=== PATIENT | male | born 1990 | race African-American/Black ===

== ENCOUNTER 2016-07-16 23:30 | Emergency (ER) | payer OTHER ==
--- NOTE | 2016-07-17 00:09 | EDDOCDS ---
Nurse's Notes [facility] Name: Woodrow Vernon Age: 25 yrs Sex: Male : 1990 Arrival Date: 07/16/2016 Time: 23:30 Bed I5 / M5 Private MD: MOBerry DYER Diagnosis: Impacted cerumen, left ear Presentation: 07/16 23:43 Presenting complaint: Patient states: Having trouble hearing out of left ear. Symptoms jo3 started yesterday. Adult Sepsis Screening: The patient does not have new or worsening altered mentation. Patient's respiratory rate is less than 22. Systolic blood pressure is greater than 100. Patient has a qSOFA score of 0- Negative Sepsis Screen. Suicide/Homicide risk assessment- the patient denies having any suicidal and/or homicidal ideations and does not present with any other emotional, behavioral or mental health complaints. 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 Transition of care: patient was not received from another setting of care. 23:43 Acuity: RIVERA Level 4 jo3 23:43 Method Of Arrival: Walkin/Carried/Asstd jo3 Triage Assessment: 23:44 General: Appears in no apparent distress, comfortable, Behavior is appropriate for age, jo3 cooperative. Pain: Denies pain. HIV screening NA for this visit Offered previously. Neurological: Level of Consciousness is awake, alert, Oriented to person, place, time. Respiratory: Airway is patent Respiratory effort is even, unlabored. Historical: - Allergies: Tramadol HCl"had a seizure"; - Home Meds: 1. hydrochlorothiazide 25 mg Oral tab 1 tab once daily - PMHx: Hypertension; - PSHx: none; - Social history: Smoking status: Patient states was never smoker of tobacco. No barriers to communication noted, The patient speaks fluent Jamaican, Speaks appropriately for age. - Family history: Not pertinent. - : The pt / caregiver states he / she is not on anticoagulants. Home medication list is obtained from the patient. - Exposure Risk Screening:: None identified. Screenin/25 00:06 Screening information is obtained from the patient. Fall risk: No risks identified. mcp Assistance ADL's: requires no assistance with activities of daily living. Abuse/DV Screen: The patient / caregiver reports he/she is: not in a situation that causes fear, pain or injury. Nutritional screening: No deficits noted. Advance Directives: There is no active DNR order. home support is adequate. Assessment: 00:04 General: Appears uncomfortable, Behavior is cooperative. Pain: Location: left ear. mcp Neurological: No deficits noted. EENT: Reports pain in left ear. Respiratory: Airway is patent Respiratory effort is even, unlabored. Derm: Skin is pink, warm & dry. Vital Signs: 07/16 23:32 BP 174 / 97; Pulse 68; Resp 18; Temp 98.2; Pulse Ox 99% ; Weight 111.13 kg; Height 5 [facility] ft. 9 in. (175.26 cm); Pain 0/10; 23:32 Body Mass Index 36.18 (111.13 kg, 175.26 cm) [facility] Vitals: 23:32 Log In Time: July 16, 2016 at 23:32. [facility] ED Course: 23:32 Patient visited by Sherry Yu Unit Clerk. [facility] 23:32 [facility]. j[facility] 23:32 Patient moved to Waiting jlm 23:33 Patient moved to Pre RCE jlm 23:44 Patient visited by Louise Evans RN. jo3 23:44 Triage Initiated jo3 23:45 Patient moved to I5 / M5 jo3 23:47 Venkatesh Peña RPA-C is PHCP. ck7 23:47 Troy Gonsalez DO is Attending Physician. ck7 23:47 Patient visited by Venkatesh Peña RPA-C. ck7 23:59 [facility] is Referral Physician. ck7 07/17 00:00 Francisco Lou is Referral Physician. ck7 00:06 The patient / caregiver is instructed regarding the plan of care and ED course. Patient mcp has correct armband on for positive identification. Bed in low position. Call light in reach. 00:07 [place] was scanned into [employer] and attached to record. hs2 00:08 No IV's were initiated during this patient's visit. No procedures done that require mcp assistance. Order Results: There are currently no results for this order. Outcome: 00:00 Discharge ordered by Provider. ck7 00:08 Discharge Assessment: patient administered narcotics - no. The following High Risk mcp Discharge criteria are identified: None. Discharged to home ambulatory. Condition: stable. Discharge instructions given to patient, Instructed on discharge instructions, follow up and referral plans. medication usage, Demonstrated understanding of instructions, medications, Pt was receptive of discharge instructions/ teaching. Prescriptions given X 1. No special radiology studies were completed. Property sent home with patient. 00:08 Patient left the ED. [facility] Signatures: Krystal Colordao RN RN mcp Helmerci, Jennifer, RN RN Venkatesh Prajapati, RPA-C RPA-Cck7 Sherry Yu, Accordion Maker Unit Valerie Coronel, Reg Reg hs2 MTDD
--- NOTE | 2016-07-17 00:09 | EDDOCDS ---
Physician Documentation [facility] Name: Woodrow Vernon Age: 25 yrs Sex: Male : 1990 Arrival Date: 07/16/2016 Time: 23:30 Bed I5 / M5 Private MD: Berry KNIGHT Disposition: 07/17/16 00:00 Discharged to Home/Self Care. Impression: Impacted cerumen, left ear. - Condition is Stable. - Discharge Instructions: Cerumen Impaction. - Prescriptions for Debrox 6.5 % Otic Drops - instill 5 drop by OTIC route once daily As needed; 1 bottle. - Medication Reconciliation, Local Pharmacy Hours form. - [facility] up: [facility]; When: 2 - 3 days; Reason: Recheck today's complaints, Continuance of care. Follow up: Francisco Lou; When: 2 - 3 days; Reason: Recheck today's complaints, Continuance of care. - Problem is new. - Symptoms have improved. Historical: - Allergies: Tramadol HCl"had a seizure"; - Home Meds: 1. hydrochlorothiazide 25 mg Oral tab 1 tab once daily - PMHx: Hypertension; - PSHx: none; - Social history: Smoking status: Patient states was never smoker of tobacco. No barriers to communication noted, The patient speaks fluent Malaysian, Speaks appropriately for age. - Family history: Not pertinent. - : The pt / caregiver states he / she is not on anticoagulants. Home medication list is obtained from the patient. - Exposure Risk Screening:: None identified. Vital Signs: 07/16 23:32 BP 174 / 97; Pulse 68; Resp 18; Temp 98.2; Pulse Ox 99% ; Weight 111.13 kg / 245 lbs; jlm Height 5 ft. 9 in. (175.26 cm); Pain 0/10; 23:32 Body Mass Index 36.18 (111.13 kg, 175.26 cm) jl MDM: 07/17 00:06 Financial registration complete. hs2 00:07 [facility] Payment Agreement was scanned into [employer] and attached to record. hs2 Signatures: Krystal Colorado RN RN Louise Sandoval RN RN jo3 Venkatesh Peña, RPA-C RPA-Cck7 Valerie Montenegro, Reg Reg hs2 The chart was reviewed and I authenticate all verbal orders and agree with the evaluation and treatment provided.Attachments: 00:07 [facility] Payment Agreement hs2 MTDD
--- NOTE | 2016-07-19 01:09 | EDDOCDS ---
Physician Documentation [facility] Name: Woodrow Vernon Age: 25 yrs Sex: Male : 1990 Arrival Date: 07/16/2016 Time: 23:30 Bed I5 / M5 Private MD: Berry KNIGHT Disposition: 07/17/16 00:00 Discharged to Home/Self Care. Impression: Impacted cerumen, left ear. - Condition is Stable. - Discharge Instructions: Cerumen Impaction. - Prescriptions for Debrox 6.5 % Otic Drops - instill 5 drop by OTIC route once daily As needed; 1 bottle. - Medication Reconciliation, Local Pharmacy Hours form. - Follow up: [facility]; When: 2 - 3 days; Reason: Recheck today's complaints, Continuance of care. Follow up: Francisco Lou; When: 2 - 3 days; Reason: Recheck today's complaints, Continuance of care. - Problem is new. - Symptoms have improved. Historical: - Allergies: Tramadol HCl"had a seizure"; - Home Meds: 1. hydrochlorothiazide 25 mg Oral tab 1 tab once daily - PMHx: Hypertension; - PSHx: none; - Social history: Smoking status: Patient states was never smoker of tobacco. No barriers to communication noted, The patient speaks fluent Indonesian, Speaks appropriately for age. - Family history: Not pertinent. - : The pt / caregiver states he / she is not on anticoagulants. Home medication list is obtained from the patient. - Exposure Risk Screening:: None identified. Vital Signs: 07/16 23:32 BP 174 / 97; Pulse 68; Resp 18; Temp 98.2; Pulse Ox 99% ; Weight 111.13 kg / 245 lbs; jlm Height 5 ft. 9 in. (175.26 cm); Pain 0/10; 23:32 Body Mass Index 36.18 (111.13 kg, 175.26 cm) [facility] MDM: 07/17 00:06 Financial registration complete. hs2 00:07 [facility] Payment Agreement was scanned into [employer] and attached to record. hs2 09:18 T-Sheet-- Draft Copy was scanned into [employer] and attached to record. [facility] Signatures: Krystal Colorado RN RN Louise Sandoval RN RN jo3 Kwaczala, Christopher, RPA-C RPA-Cck7 Valerie Montenegro, Reg Reg hs2 Reanna White The chart was reviewed and I authenticate all verbal orders and agree with the evaluation and treatment provided.Attachments: 00:07 [facility] Payment Agreement hs2 09:18 T-Sheet-- Draft Copy [facility] Chart Complete MTDD
--- NOTE | 2016-07-19 01:09 | EDDOCDS ---
Physician Documentation [facility] Name: Woodrow Vernon Age: 25 yrs Sex: Male : 1990 Arrival Date: 07/16/2016 Time: 23:30 Bed I5 / M5 Private MD: Berry KNIGHT Disposition: 07/17/16 00:00 Discharged to Home/Self Care. Impression: Impacted cerumen, left ear. - Condition is Stable. - Discharge Instructions: Cerumen Impaction. - Prescriptions for Debrox 6.5 % Otic Drops - instill 5 drop by OTIC route once daily As needed; 1 bottle. - Medication Reconciliation, Local Pharmacy Hours form. - Follow up: [facility]; When: 2 - 3 days; Reason: Recheck today's complaints, Continuance of care. Follow up: Francisco Lou; When: 2 - 3 days; Reason: Recheck today's complaints, Continuance of care. - Problem is new. - Symptoms have improved. Historical: - Allergies: Tramadol HCl"had a seizure"; - Home Meds: 1. hydrochlorothiazide 25 mg Oral tab 1 tab once daily - PMHx: Hypertension; - PSHx: none; - Social history: Smoking status: Patient states was never smoker of tobacco. No barriers to communication noted, The patient speaks fluent Cypriot, Speaks appropriately for age. - Family history: Not pertinent. - : The pt / caregiver states he / she is not on anticoagulants. Home medication list is obtained from the patient. - Exposure Risk Screening:: None identified. Vital Signs: 07/16 23:32 BP 174 / 97; Pulse 68; Resp 18; Temp 98.2; Pulse Ox 99% ; Weight 111.13 kg / 245 lbs; jlm Height 5 ft. 9 in. (175.26 cm); Pain 0/10; 23:32 Body Mass Index 36.18 (111.13 kg, 175.26 cm) [facility] MDM: 07/17 00:06 Financial registration complete. hs2 00:07 [facility] Payment Agreement was scanned into [employer] and attached to record. hs2 09:18 T-Sheet-- Draft Copy was scanned into [employer] and attached to record. [facility] Signatures: Krystal Colorado RN RN Louise Sandoval RN RN jo3 Kwaczala, Christopher, RPA-C RPA-Cck7 Valerie Montenegro, Reg Reg hs2 Reanna White The chart was reviewed and I authenticate all verbal orders and agree with the evaluation and treatment provided.Attachments: 00:07 [facility] Payment Agreement hs2 09:18 T-Sheet-- Draft Copy [facility] Chart Complete MTDD
--- NOTE | 2016-07-19 01:09 | EDDOCDS ---
Nurse's Notes [facility] Name: Woodrow Vernon Age: 25 yrs Sex: Male : 1990 Arrival Date: 07/16/2016 Time: 23:30 Bed I5 / M5 Private MD: NYBerry DYER Diagnosis: Impacted cerumen, left ear Presentation: 07/16 23:43 Presenting complaint: Patient states: Having trouble hearing out of left ear. Symptoms jo3 started yesterday. Adult Sepsis Screening: The patient does not have new or worsening altered mentation. Patient's respiratory rate is less than 22. Systolic blood pressure is greater than 100. Patient has a qSOFA score of 0- Negative Sepsis Screen. Suicide/Homicide risk assessment- the patient denies having any suicidal and/or homicidal ideations and does not present with any other emotional, behavioral or mental health complaints. 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 Transition of care: patient was not received from another setting of care. 23:43 Acuity: RIVERA Level 4 jo3 23:43 Method Of Arrival: Walkin/Carried/Asstd jo3 Triage Assessment: 23:44 General: Appears in no apparent distress, comfortable, Behavior is appropriate for age, jo3 cooperative. Pain: Denies pain. HIV screening NA for this visit Offered previously. Neurological: Level of Consciousness is awake, alert, Oriented to person, place, time. Respiratory: Airway is patent Respiratory effort is even, unlabored. Historical: - Allergies: Tramadol HCl"had a seizure"; - Home Meds: 1. hydrochlorothiazide 25 mg Oral tab 1 tab once daily - PMHx: Hypertension; - PSHx: none; - Social history: Smoking status: Patient states was never smoker of tobacco. No barriers to communication noted, The patient speaks fluent Somali, Speaks appropriately for age. - Family history: Not pertinent. - : The pt / caregiver states he / she is not on anticoagulants. Home medication list is obtained from the patient. - Exposure Risk Screening:: None identified. Screenin/25 00:06 Screening information is obtained from the patient. Fall risk: No risks identified. mcp Assistance ADL's: requires no assistance with activities of daily living. Abuse/DV Screen: The patient / caregiver reports he/she is: not in a situation that causes fear, pain or injury. Nutritional screening: No deficits noted. Advance Directives: There is no active DNR order. home support is adequate. Assessment: 00:04 General: Appears uncomfortable, Behavior is cooperative. Pain: Location: left ear. mcp Neurological: No deficits noted. EENT: Reports pain in left ear. Respiratory: Airway is patent Respiratory effort is even, unlabored. Derm: Skin is pink, warm & dry. Vital Signs: 07/16 23:32 BP 174 / 97; Pulse 68; Resp 18; Temp 98.2; Pulse Ox 99% ; Weight 111.13 kg; Height 5 [facility] ft. 9 in. (175.26 cm); Pain 0/10; 23:32 Body Mass Index 36.18 (111.13 kg, 175.26 cm) [facility] Vitals: 23:32 Log In Time: July 16, 2016 at 23:32. [facility] ED Course: 23:32 Patient visited by Sherry Yu Unit Clerk. [facility] 23:32 [facility]. jl 23:32 Patient moved to Waiting jlm 23:33 Patient moved to Pre RCE jlm 23:44 Patient visited by Louise Evans RN. jo3 23:44 Triage Initiated jo3 23:45 Patient moved to I5 / M5 jo3 23:47 Venkatesh Peña RPA-C is PHCP. ck7 23:47 Troy Gonsalez DO is Attending Physician. ck7 23:47 Patient visited by Venkatesh Peña RPA-C. ck7 23:59 [facility] is Referral Physician. ck7 07/17 00:00 Francisco Lou is Referral Physician. ck7 00:06 The patient / caregiver is instructed regarding the plan of care and ED course. Patient mcp has correct armband on for positive identification. Bed in low position. Call light in reach. 00:07 [place] was scanned into [employer] and attached to record. hs2 00:08 No IV's were initiated during this patient's visit. No procedures done that require mcp assistance. 09:18 T-Sheet-- Draft Copy was scanned into [employer] and attached to record. [facility] Order Results: There are currently no results for this order. Outcome: 00:00 Discharge ordered by Provider. ck7 00:08 Discharge Assessment: patient administered narcotics - no. The following High Risk [facility] Discharge criteria are identified: None. Discharged to home ambulatory. Condition: stable. Discharge instructions given to patient, Instructed on discharge instructions, follow up and referral plans. medication usage, Demonstrated understanding of instructions, medications, Pt was receptive of discharge instructions/ teaching. Prescriptions given X 1. No special radiology studies were completed. Property sent home with patient. 00:08 Patient left the ED. [facility] Signatures: Krystal Colorado RN RN Louise Sandoval,RN RN joVenkatesh Kurtz, RPA-C RPA-Cck7 Sherry Yu, Merchandise Associate Unit jlValerie Chow, Reg Reg hs2 Reanna White Chart Complete MTDD
== END 2016-07-17 00:08 | disposition home or self-care (01) ==
LOC: M ED 23:30
DX: H61.22 Impacted cerumen, left ear (principal); I10 Essential (primary) hypertension; Z79.899 Other long term (current) drug therapy; Z88.5 Allergy status to narcotic agent

== ENCOUNTER 2016-07-19 23:26 | Emergency (ER) | payer OTHER, SELFPAY ==
--- NOTE | 2016-07-20 01:35 | EDDOCDS ---
Nurse's Notes [facility] Name: Woodrow Vernon Age: 25 yrs Sex: Male : 1990 Arrival Date: 07/19/2016 Time: 23:26 Bed Triage 2 Private MD: NO PRIMARY PHYSICIAN, . Diagnosis: Impacted cerumen, left ear Presentation: 07/19 23:50 Presenting complaint: Patient states: Left ear pain with decreased hearing. Pt. states lf1 he has been using Debrox at home twice a day with no improvement. Pain is currently 2/10. Adult Sepsis Screening: The patient does not have new or worsening altered mentation. Patient's respiratory rate is less than 22. Systolic blood pressure is greater than 100. Patient has a qSOFA score of 0- Negative Sepsis Screen. Suicide/Homicide risk assessment- the patient denies having any suicidal and/or homicidal ideations and does not present with any other emotional, behavioral or mental health complaints. Status: Patient is not a director of professional services or dependent. Transition of care: patient was not received from another setting of care. 23:50 Acuity: RIVERA Level 4 lf1 23:50 Method Of Arrival: Walkin/Carried/Asstd lf1 Triage Assessment: 23:52 General: Appears in no apparent distress, comfortable, Behavior is cooperative. Pain: lf1 Location: left ear Pain currently is 2 out of 10 on a pain scale. HIV screening NA for this visit Offered previously. Neurological: Level of Consciousness is awake, alert, Oriented to person, place, time. EENT: Reports decreased hearing in left ear pain in left ear. Respiratory: Respiratory effort is even, unlabored. GI: Denies nausea, vomiting. Derm: Skin is normal. Historical: - Allergies: Tramadol HCl"had a seizure"; - Home Meds: 1. hydrochlorothiazide 25 mg Oral tab 1 tab once daily (Last dose: 07/19/2016 07:00) - PMHx: Hypertension; - PSHx: none; - Social history: Smoking status: Patient states was never smoker of tobacco. No barriers to communication noted, The patient speaks fluent Turkish, Speaks appropriately for age, Preferred Language: Turkish. - Family history: Not pertinent. - : The pt / caregiver states he / she is not on anticoagulants. Home medication list is obtained from the patient. - Exposure Risk Screening:: None identified. Screenin:53 Screening information is obtained from the patient. Fall risk: No risks identified. lf1 Assistance ADL's: requires no assistance with activities of daily living. Abuse/DV Screen: The patient / caregiver reports he/she is: not in a situation that causes fear, pain or injury. Nutritional screening: No deficits noted. Advance Directives: Currently, there is no health care proxy. There is no active DNR order. home support is adequate. Assessment: 07/20 00:12 General: alert male with left ear pain seen here for same no relief with medication cz used at home. 01:01 Adult Sepsis Screening: The patient does not have new or worsening altered mentation. lf1 Patient's respiratory rate is less than 22. Systolic blood pressure is greater than 100. Patient has a qSOFA score of 0- Negative Sepsis Screen. General: Appears in no apparent distress, comfortable. Pain: Location: left ear Pain currently is 2 out of 10 on a pain scale. Neurological: Level of Consciousness is awake, alert, Oriented to person, place, time. EENT: Reports pain in left ear. Respiratory: Respiratory effort is even, unlabored. Derm: Skin is intact. 01:20 General: Appears in no apparent distress, comfortable, Behavior is cooperative. Pain: lf1 Denies pain. Neurological: Level of Consciousness is awake, alert. EENT: left ear irrigated, multiple small cerumen pieces removed . Respiratory: Respiratory effort is even, unlabored. GI: Denies nausea, vomiting. Derm: Skin is normal. Vital Signs: 07/19 23:27 BP 161 / 92; Pulse 90; Resp 16; Temp 97.9(O); Pulse Ox 98% on R/A; Weight 111.13 kg lr2 (R); Height 5 ft. 9 in. (175.26 cm) (R); Pain 2/10; 07/20 01:20 BP 148 / 88; Pulse 72; Resp 16; Temp 98.0(TE); Pulse Ox 98% on R/A; Pain 0/10; lf1 07/19 23:27 Body Mass Index 36.18 (111.13 kg, 175.26 cm) lr2 Vitals: 07/19 23:27 Log In Time: July 19, 2016 at 23:26. lr2 ED Course: 23:27 Patient visited by Felipa Montemayor. lr2 23:27 Patient moved to Waiting lr2 23:29 NO PRIMARY PHYSICIAN, . is Private Physician. lr2 23:29 Patient moved to Pre RCE lr2 23:51 Triage Initiated lf1 07/20 00:11 Patient moved to Triage 2 cz 00:12 The patient / caregiver is instructed regarding the plan of care and ED course. cz 00:12 No IV's were initiated during this patient's visit. No procedures done that require cz assistance. 01:01 Patient visited by Brisa Huang RN. lf1 01:01 Venkatesh [facility] ck7 01:02 Troy Gonsalez DO is Attending Physician. ck7 01:02 Patient visited by Venkatesh Peña RPA-C. ck7 01:02 Patient visited by Brisa Huang RN. lf1 01:20 Patient visited by Brisa Huang RN. lf1 01:20 Ear irrigation: Route left ear with Other NS and Peroxide mixture amount Other 150ML lf1 Patient tolerated well. 01:24 Patient visited by Brisa Huang RN. lf1 Order Results: There are currently no results for this order. Outcome: 01:11 Discharge ordered by Provider. ck7 01:23 Discharge Assessment: Patient awake, alert and oriented x 3. No cognitive and/or lf1 functional deficits noted. Patient verbalized understanding of disposition instructions. Patient awake and alert. Oriented to person, place and time. Patient verbalized understanding of disposition instructions. patient administered narcotics - no. The following High Risk Discharge criteria are identified: None. Discharged to home ambulatory. Condition: improved. Discharge instructions given to patient, Instructed on discharge instructions, follow up and referral plans. medication usage, Demonstrated understanding of instructions, Pt was receptive of discharge instructions/ teaching. No special radiology studies were completed. Property :Personal belongings accompany Pt. 01:34 Patient left the ED. lf1 Signatures: Jerry Gustafson RN RN cz Ford, Lisa, RN RN lf1 Venkatesh Peña RPA-C [facility]-Cck7 Felipa Montemayor lr2 MTDD
--- NOTE | 2016-07-20 01:35 | EDDOCDS ---
Physician Documentation [facility] Name: Woodrow Vernon Age: 25 yrs Sex: Male : 1990 Arrival Date: 07/19/2016 Time: 23:26 Bed Triage 2 Private MD: NO PRIMARY PHYSICIAN, . Disposition: 07/20/16 01:11 Discharged to Home/Self Care. Impression: Impacted cerumen, left ear. - Condition is Stable. - Discharge Instructions: Cerumen Impaction, Ear Drops, Adult. - Medication Reconciliation, Local Pharmacy Hours form. - Follow up: Private Physician; When: 2 - 3 days; Reason: Recheck today's complaints, Continuance of care. - Problem is new. - Symptoms have improved. - Notes: FOLLOW UP WITH YOUR DOCTOR, RETURN TO THE ER IF THE SYMPTOMS WORSEN OR BECOME CONCERNING Historical: - Allergies: Tramadol HCl"had a seizure"; - Home Meds: 1. hydrochlorothiazide 25 mg Oral tab 1 tab once daily (Last dose: 07/19/2016 07:00) - PMHx: Hypertension; - PSHx: none; - Social history: Smoking status: Patient states was never smoker of tobacco. No barriers to communication noted, The patient speaks fluent Czech, Speaks appropriately for age, Preferred Language: Czech. - Family history: Not pertinent. - : The pt / caregiver states he / she is not on anticoagulants. Home medication list is obtained from the patient. - Exposure Risk Screening:: None identified. Vital Signs: 07/19 23:27 BP 161 / 92; Pulse 90; Resp 16; Temp 97.9(O); Pulse Ox 98% on R/A; Weight 111.13 kg / lr2 245 lbs (R); Height 5 ft. 9 in. (175.26 cm) (R); Pain 2/10; 07/20 01:20 BP 148 / 88; Pulse 72; Resp 16; Temp 98.0(TE); Pulse Ox 98% on R/A; Pain 0/10; lf1 07/19 23:27 Body Mass Index 36.18 (111.13 kg, 175.26 cm) lr2 MDM: 01:21 Financial registration complete. [facility] 01:33 Mis. Nursing Order ordered. ck7 Signatures: Jerry Gustafson RN RN cz Brisa Huang RN RN lf1 Venkatesh Peña, RPA-C RPA-Cck7 Tricia Mobley [facility] MTDD
--- NOTE | 2016-07-22 02:35 | EDDOCDS ---
Physician Documentation [facility] Name: Woodrow Vernon Age: 25 yrs Sex: Male : 1990 Arrival Date: 07/19/2016 Time: 23:26 Bed Triage 2 Private MD: NO PRIMARY PHYSICIAN, . Disposition: 07/20/16 01:11 Discharged to Home/Self Care. Impression: Impacted cerumen, left ear. - Condition is Stable. - Discharge Instructions: Cerumen Impaction, Ear Drops, Adult. - Medication Reconciliation, Local Pharmacy Hours form. - Follow up: Private Physician; When: 2 - 3 days; Reason: Recheck today's complaints, Continuance of care. - Problem is new. - Symptoms have improved. - Notes: FOLLOW UP WITH YOUR DOCTOR, RETURN TO THE ER IF THE SYMPTOMS WORSEN OR BECOME CONCERNING Historical: - Allergies: Tramadol HCl"had a seizure"; - Home Meds: 1. hydrochlorothiazide 25 mg Oral tab 1 tab once daily (Last dose: 07/19/2016 07:00) - PMHx: Hypertension; - PSHx: none; - Social history: Smoking status: Patient states was never smoker of tobacco. No barriers to communication noted, The patient speaks fluent Macedonian, Speaks appropriately for age, Preferred Language: Macedonian. - Family history: Not pertinent. - : The pt / caregiver states he / she is not on anticoagulants. Home medication list is obtained from the patient. - Exposure Risk Screening:: None identified. Vital Signs: 07/19 23:27 BP 161 / 92; Pulse 90; Resp 16; Temp 97.9(O); Pulse Ox 98% on R/A; Weight 111.13 kg / lr2 245 lbs (R); Height 5 ft. 9 in. (175.26 cm) (R); Pain 2/10; 07/20 01:20 BP 148 / 88; Pulse 72; Resp 16; Temp 98.0(TE); Pulse Ox 98% on R/A; Pain 0/10; lf1 07/19 23:27 Body Mass Index 36.18 (111.13 kg, 175.26 cm) lr2 MDM: 01:21 Financial registration complete. [facility] 01:33 [facility] Nursing Order ordered. ck7 01:51 [facility] Payment Agreement was scanned into [employer] and attached to record. [facility] Signatures: Jerry Gustafson, RN RN cz Brisa Huang RN RN lf1 Venkatesh Peña, RPA-C RPA-Cck7 Tricia Mobley [facility] The chart was reviewed and I authenticate all verbal orders and agree with the evaluation and treatment provided.Attachments: 01:51 [facility] Payment Agreement [facility] Chart Complete MTDD
--- NOTE | 2016-07-22 02:35 | EDDOCDS ---
Physician Documentation [facility] Name: Woodrow Vernon Age: 25 yrs Sex: Male : 1990 Arrival Date: 07/19/2016 Time: 23:26 Bed Triage 2 Private MD: NO PRIMARY PHYSICIAN, . Disposition: 07/20/16 01:11 Discharged to Home/Self Care. Impression: Impacted cerumen, left ear. - Condition is Stable. - Discharge Instructions: Cerumen Impaction, Ear Drops, Adult. - Medication Reconciliation, Local Pharmacy Hours form. - Follow up: Private Physician; When: 2 - 3 days; Reason: Recheck today's complaints, Continuance of care. - Problem is new. - Symptoms have improved. - Notes: FOLLOW UP WITH YOUR DOCTOR, RETURN TO THE ER IF THE SYMPTOMS WORSEN OR BECOME CONCERNING Historical: - Allergies: Tramadol HCl"had a seizure"; - Home Meds: 1. hydrochlorothiazide 25 mg Oral tab 1 tab once daily (Last dose: 07/19/2016 07:00) - PMHx: Hypertension; - PSHx: none; - Social history: Smoking status: Patient states was never smoker of tobacco. No barriers to communication noted, The patient speaks fluent Welsh, Speaks appropriately for age, Preferred Language: Welsh. - Family history: Not pertinent. - : The pt / caregiver states he / she is not on anticoagulants. Home medication list is obtained from the patient. - Exposure Risk Screening:: None identified. Vital Signs: 07/19 23:27 BP 161 / 92; Pulse 90; Resp 16; Temp 97.9(O); Pulse Ox 98% on R/A; Weight 111.13 kg / lr2 245 lbs (R); Height 5 ft. 9 in. (175.26 cm) (R); Pain 2/10; 07/20 01:20 BP 148 / 88; Pulse 72; Resp 16; Temp 98.0(TE); Pulse Ox 98% on R/A; Pain 0/10; lf1 07/19 23:27 Body Mass Index 36.18 (111.13 kg, 175.26 cm) lr2 MDM: 01:21 Financial registration complete. [facility] 01:33 [facility] [place]. Nursing Order ordered. ck7 01:51 [facility] [place] Agreement was scanned into [employer] and attached to record. [facility] Signatures: Jerry Gustafson, RN RN cz Brisa Huang RN RN lf1 Venkatesh Peña, RPA-C RPA-Cck7 Tricia Mobley [facility] The chart was reviewed and I authenticate all verbal orders and agree with the evaluation and treatment provided.Attachments: 01:51 [facility] Payment Agreement [facility] Chart Complete MTDD
--- NOTE | 2016-07-22 02:35 | EDDOCDS ---
Nurse's Notes [facility] Name: Woodrow Vernon Age: 25 yrs Sex: Male : 1990 Arrival Date: 07/19/2016 Time: 23:26 Bed Triage 2 Private MD: NO PRIMARY PHYSICIAN, . Diagnosis: Impacted cerumen, left ear Presentation: 07/19 23:50 Presenting complaint: Patient states: Left ear pain with decreased hearing. Pt. states lf1 he has been using Debrox at home twice a day with no improvement. Pain is currently 2/10. Adult Sepsis Screening: The patient does not have new or worsening altered mentation. Patient's respiratory rate is less than 22. Systolic blood pressure is greater than 100. Patient has a qSOFA score of 0- Negative Sepsis Screen. Suicide/Homicide risk assessment- the patient denies having any suicidal and/or homicidal ideations and does not present with any other emotional, behavioral or mental health complaints. 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 Transition of care: patient was not received from another setting of care. 23:50 Acuity: RIVERA Level 4 lf1 23:50 Method Of Arrival: Walkin/Carried/Asstd lf1 Triage Assessment: 23:52 General: Appears in no apparent distress, comfortable, Behavior is cooperative. Pain: lf1 Location: left ear Pain currently is 2 out of 10 on a pain scale. HIV screening NA for this visit Offered previously. Neurological: Level of Consciousness is awake, alert, Oriented to person, place, time. EENT: Reports decreased hearing in left ear pain in left ear. Respiratory: Respiratory effort is even, unlabored. GI: Denies nausea, vomiting. Derm: Skin is normal. Historical: - Allergies: Tramadol HCl"had a seizure"; - Home Meds: 1. hydrochlorothiazide 25 mg Oral tab 1 tab once daily (Last dose: 07/19/2016 07:00) - PMHx: Hypertension; - PSHx: none; - Social history: Smoking status: Patient states was never smoker of tobacco. No barriers to communication noted, The patient speaks fluent Wolof, Speaks appropriately for age, Preferred Language: Wolof. - Family history: Not pertinent. - : The pt / caregiver states he / she is not on anticoagulants. Home medication list is obtained from the patient. - Exposure Risk Screening:: None identified. Screenin:53 Screening information is obtained from the patient. Fall risk: No risks identified. lf1 Assistance ADL's: requires no assistance with activities of daily living. Abuse/DV Screen: The patient / caregiver reports he/she is: not in a situation that causes fear, pain or injury. Nutritional screening: No deficits noted. Advance Directives: Currently, there is no health care proxy. There is no active DNR order. home support is adequate. Assessment: 07/20 00:12 General: alert male with left ear pain seen here for same no relief with medication cz used at home. 01:01 Adult Sepsis Screening: The patient does not have new or worsening altered mentation. lf1 Patient's respiratory rate is less than 22. Systolic blood pressure is greater than 100. Patient has a qSOFA score of 0- Negative Sepsis Screen. General: Appears in no apparent distress, comfortable. Pain: Location: left ear Pain currently is 2 out of 10 on a pain scale. Neurological: Level of Consciousness is awake, alert, Oriented to person, place, time. EENT: Reports pain in left ear. Respiratory: Respiratory effort is even, unlabored. Derm: Skin is intact. 01:20 General: Appears in no apparent distress, comfortable, Behavior is cooperative. Pain: lf1 Denies pain. Neurological: Level of Consciousness is awake, alert. EENT: left ear irrigated, multiple small cerumen pieces removed . Respiratory: Respiratory effort is even, unlabored. GI: Denies nausea, vomiting. Derm: Skin is normal. Vital Signs: 07/19 23:27 BP 161 / 92; Pulse 90; Resp 16; Temp 97.9(O); Pulse Ox 98% on R/A; Weight 111.13 kg lr2 (R); Height 5 ft. 9 in. (175.26 cm) (R); Pain 2/10; 07/20 01:20 BP 148 / 88; Pulse 72; Resp 16; Temp 98.0(TE); Pulse Ox 98% on R/A; Pain 0/10; lf1 07/19 23:27 Body Mass Index 36.18 (111.13 kg, 175.26 cm) lr2 Vitals: 07/19 23:27 Log In Time: July 19, 2016 at 23:26. lr2 ED Course: 23:27 Patient visited by Felipa Montemayor. lr2 23:27 Patient moved to Waiting lr2 23:29 NO PRIMARY PHYSICIAN, . is Private Physician. lr2 23:29 Patient moved to Pre RCE lr2 23:51 Triage Initiated lf1 07/20 00:11 Patient moved to Triage 2 cz 00:12 The patient / caregiver is instructed regarding the plan of care and ED course. cz 00:12 No IV's were initiated during this patient's visit. No procedures done that require cz assistance. 01:01 Patient visited by Brisa Huang RN. lf1 01:01 Venkatesh Peña RPA-C is PHCP. ck7 01:02 Troy Gonsalez DO is Attending Physician. ck7 01:02 Patient visited by Venkatesh Peña RPA-C. ck7 01:02 Patient visited by Brisa Huang RN. lf1 01:20 Patient visited by Brisa Huang RN. lf1 01:20 Ear irrigation: Route left ear with Other NS and Peroxide mixture amount Other 150ML lf1 Patient tolerated well. 01:24 Patient visited by Brisa Huang RN. lf1 01:51 [facility] Payment Agreement was scanned into [employer] and attached to record. [facility] Order Results: There are currently no results for this order. Outcome: 01:11 Discharge ordered by Provider. ck7 01:23 Discharge Assessment: Patient awake, alert and oriented x 3. No cognitive and/or lf1 functional deficits noted. Patient verbalized understanding of disposition instructions. Patient awake and alert. Oriented to person, place and time. Patient verbalized understanding of disposition instructions. patient administered narcotics - no. The following High Risk Discharge criteria are identified: None. Discharged to home ambulatory. Condition: improved. Discharge instructions given to patient, Instructed on discharge instructions, follow up and referral plans. medication usage, Demonstrated understanding of instructions, Pt was receptive of discharge instructions/ teaching. No special radiology studies were completed. Property :Personal belongings accompany Pt. 01:34 Patient left the ED. lf1 Signatures: Jerry Gustafson RN RN cz Ford, Lisa, RN RN lf1 Venkatesh Peña RPA-C [facility]-Cck7 Tricia Mobley [facility] Felipa Montemayor lr2 Chart Complete MTDD
== END 2016-07-20 01:34 | disposition home or self-care (01) ==
LOC: M ED 23:26
DX: H61.22 Impacted cerumen, left ear (principal); I10 Essential (primary) hypertension; Z79.899 Other long term (current) drug therapy; Z88.5 Allergy status to narcotic agent

== ENCOUNTER 2016-09-20 23:10 | Emergency (ER) | payer OTHER, SELFPAY ==
[~2016-09-20] VITALS: Ht 177.8 cm; Wt 108.9 kg
[2016-09-20] MEDS ORDERED: [UNRECOGNIZED DRUG - REMARK] (23:16)
[2016-09-20 23:56] VITALS: BP 148/82
== END 2016-09-20 23:57 | disposition home or self-care (01) ==
LOC: M ED 23:45
DX: L73.9 Follicular disorder, unspecified (principal); I10 Essential (primary) hypertension; Z79.899 Other long term (current) drug therapy; Z88.8 Allergy status to other drugs, medicaments and biological substances

== ENCOUNTER 2016-10-25 04:32 | Emergency (ER) | payer OTHER, SELFPAY ==
[~2016-10-25] VITALS: Ht 175.3 cm; Wt 108.9 kg
[~2016-10-25 04:32] MED LIST: [UNRECOGNIZED DRUG - REMARK]
[2016-10-25] MEDS ORDERED: HYDR25TA6 PO (04:41)
[2016-10-25] MEDS ORDERED: KETOROLAC 30 MG/ML VIAL (J1885) IV ONE (06:45)
[2016-10-25] MEDS ORDERED: NS 1,000 ML IV ONE (06:45)
[2016-10-25 07:10] LABS: BASO % 1.1 % (0.0-1.0); EOS # 0.1 K/mm3 (0.0-0.50); EOS % 2.6 % (0.0-3.0); LARGE UNSTAINED CELL # 0.1 K/mm3 (0.0-0.4); LARGE UNSTAINED CELL % 2.6 % (0.0-4.0); LYMPH # 2.5 K/mm3 (1.5-6.5); LYMPH % 49.7 % (24.0-44.0); MEAN CORPUSCULAR HEMOGLOBIN 30.5 pg (27.0-33.0); MEAN CORPUSCULAR HGB CONC 34.6 g/dl (32.0-36.5); MEAN CORPUSCULAR VOLUME 88.2 fl (80.0-96.0); MONO # 0.3 K/mm3 (0.0-0.8); MONO % 5.8 % (0.0-5.0); NEUTROPHILS # 1.9 K/mm3 (1.8-7.7); NEUTROPHILS % 38.2 % (36.0-66.0); PLATELET COUNT, AUTOMATED 162 k/mm3 (150-450); RED CELL DISTRIBUTION WIDTH 12.9 % (11.5-14.5)
--- NOTE | 2016-10-25 07:20 | REP ---
Clinical: Right flank pain and renal colic. Findings: Lung bases are clear. Visualized heart and pericardium normal. Liver, spleen, pancreas, gallbladder, bilateral adrenal glands and kidneys are normal. Specifically, there is no perinephric stranding, hydroureteronephrosis, nephroureterolithiasis or obstructing ureteral calculus. The enteric system is without obstruction or acute inflammatory process, and a normal terminal ileum and appendix are identified in the right lower quadrant. Pelvis demonstrates normal bladder and age appropriate prostate/seminal vesicles. No ascites. No free air. No intraperitoneal or retroperitoneal adenopathy. Abdominal aorta without aneurysm. Surrounding musculoskeletal structures are intact. Impression: Normal noncontrast CT of the abdomen and pelvis. Signed by Tejas Tucker MD 10/25/2016 07:10 A
[2016-10-25 07:27] LABS: ALBUMIN 4.2 GM/DL (3.2-5.2); ALBUMIN/GLOBULIN RATIO 1.11 (1.00-1.93); ALKALINE PHOSPHATASE 89 U/L (45-117); ALT/SGPT 79 U/L (12-78); ANION GAP 7 MEQ/L (8-16); AST/SGOT 38 U/L (15-37); BILIRUBIN,DIRECT 0.1 MG/DL (0.0-0.2); BLOOD UREA NITROGEN 13 MG/DL (7-18); CALCIUM LEVEL 9.2 MG/DL (8.5-10.1); CARBON DIOXIDE LEVEL 29 MEQ/L (21-32); CHLORIDE LEVEL 105 MEQ/L (98-107); CREATININE FOR GFR 1.09 MG/DL (0.70-1.30); GLOMERULAR FILTRATION RATE > 60.0 (>60); GLUCOSE, FASTING 89 MG/DL (70-105); POTASSIUM SERUM 4.3 MEQ/L (3.5-5.1); SODIUM LEVEL 141 MEQ/L (136-145)
--- NOTE | 2016-10-25 09:34 | REP ---
Abdominal right upper quadrant ultrasound, emergency room request for elevated liver enzymes and right flank pain: There is no San's sign to transducer pressure. There is no cholelithiasis, gallbladder wall thickening or pericholecystic fluid. There is no intrahepatic or extrahepatic biliary duct dilatation, the common duct measures 2.4 mm in diameter. The hepatic parenchyma is echogenic compatible with hepato steatosis. No focal hepatic masses or cysts are identified. The pancreas is obscured by bowel gas. There is no right renal calculus, mass, cyst or hydronephrosis. The right kidney is normal size 11.5 cm craniocaudad length. Impression: There are findings compatible with hepato steatosis. The pancreas is obscured by bowel gas. Otherwise, negative abdominal right upper quadrant ultrasound. Signed by Jimmy Negron MD 10/25/2016 09:26 A
[2016-10-25] MEDS ORDERED: BACT800T5 PO (10:07)
[2016-10-25] MEDS ORDERED: IBUP600T26 PO (10:07)
[2016-10-25 10:18] VITALS: BP 168/97
== END 2016-10-25 10:19 | disposition home or self-care (01) ==
LOC: M ED 05:55
DX: M54.5 Low back pain (principal); K76.0 Fatty (change of) liver, not elsewhere classified; I10 Essential (primary) hypertension; Z79.899 Other long term (current) drug therapy; Z88.5 Allergy status to narcotic agent
CPT/HCPCS: 36415; 74176; 76705; 80048; 80076; 81001; 85025; 87086; 87491; 87591; 96374; 99284; J1885

== ENCOUNTER 2017-04-08 15:33 | Emergency (ER) | payer SELFPAY ==
[~2017-04-08] VITALS: Ht 175.3 cm; Wt 118.2 kg
[~2017-04-08 15:33] MED LIST changes: +BACT800T5 PO; +HYDR25TA6 PO; +IBUP-1022 PO
[2017-04-08] MEDS ORDERED: VITA1CAP40 PO (15:46)
[2017-04-08] MEDS ORDERED: ASPIRIN 81 MG CHEW TABLET PO ONE (16:00)
[2017-04-08 16:14] LABS: BASO # 0.1 10^3/uL (0.0-0.2); BASO % 1.4 % (0.0-1.0); EOS # 0.1 10^3/uL (0.0-0.50); EOS % 1.6 % (0.0-3.0); IMMATURE GRANULOCYTE % 0.2 % (0-0); LYMPH # 2.2 10^3/uL (1.5-6.5); LYMPH % 49.9 % (24.0-44.0); MEAN CORPUSCULAR HEMOGLOBIN 27.9 pg (27.0-33.0); MEAN CORPUSCULAR HGB CONC 32.4 g/dl (32.0-36.5); MEAN CORPUSCULAR VOLUME 86.1 fl (80.0-96.0); MONO # 0.4 10^3/uL (0.0-0.8); MONO % 8.5 % (0.0-5.0); NEUTROPHILS # 1.7 10^3/uL (1.8-7.7); NEUTROPHILS % 38.4 % (36.0-66.0); PLATELET COUNT, AUTOMATED 177 10^3/uL (150-450); RED CELL DISTRIBUTION WIDTH 13.2 % (11.5-14.5); WHITE BLOOD COUNT 4.3 10^3/uL (4.0-10.0)
[2017-04-08 16:39] LABS: ANION GAP 8 MEQ/L (8-16); BLOOD UREA NITROGEN 11 MG/DL (7-18); CARBON DIOXIDE LEVEL 32 MEQ/L (21-32); CHLORIDE LEVEL 104 MEQ/L (98-107); CREATININE FOR GFR 1.12 MG/DL (0.70-1.30); GLOMERULAR FILTRATION RATE > 60.0 (>60); GLUCOSE, FASTING 88 MG/DL (70-105); POTASSIUM SERUM 3.9 MEQ/L (3.5-5.1); SODIUM LEVEL 144 MEQ/L (136-145)
--- NOTE | 2017-04-08 16:40 | REP ---
Clinical: Chest pain . Comparison: 10/27/2015 . Findings: The mediastinum and cardiac silhouette are stable and within normal limits for portable technique. The lung bejarano are clear without acute consolidation, effusion, or pneumothorax. Skeletal structures are intact. Impression: No acute cardiopulmonary process appreciated. Signed by Tejas Tucker MD 04/08/2017 04:32 P
[2017-04-08 19:41] VITALS: BP 131/79
--- NOTE | 2017-04-09 08:36 | ECGEPIP ---
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
--- NOTE | 2017-04-12 08:14 | ECGEPIP ---
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
== END 2017-04-08 19:46 | disposition home or self-care (01) ==
LOC: M ED 15:33 → EDBD 15:33 → M ED 19:46
DX: I10 Essential (primary) hypertension (principal); R07.89 Other chest pain; R94.31 Abnormal electrocardiogram [ECG] [EKG]; Z79.899 Other long term (current) drug therapy; Z88.5 Allergy status to narcotic agent

== ENCOUNTER 2017-06-02 16:34 | Emergency (ER) | payer OTHER, SELFPAY ==
[2017-06-02] MEDS: NAPROXEN 250 MG TAB PO ×2 (17:13)
== END 2017-06-02 18:46 | disposition home or self-care (01) ==
LOC: M ED 16:34
DX: S83.91XA Sprain of unspecified site of right knee, initial encounter (principal); W19.XXXA Unspecified fall, initial encounter; Y92.89 Other specified places as the place of occurrence of the external cause; Y93.61 Activity, american tackle football; Z79.899 Other long term (current) drug therapy; Z88.5 Allergy status to narcotic agent
CPT/HCPCS: 73564

== ENCOUNTER 2017-06-08 15:09 | Emergency (ER) | payer OTHER, SELFPAY | END 2017-06-08 18:20 | disposition home or self-care (01) | LOC: M ED 15:09 | DX: S83.521A Sprain of posterior cruciate ligament of right knee, initial encounter (principal); W01.0XXA Fall on same level from slipping, tripping and stumbling without subsequent striking against object, initial encounter; Y92.39 Other specified sports and athletic area as the place of occurrence of the external cause; Y93.62 Activity, american flag or touch football; Y99.8 Other external cause status; I10 Essential (primary) hypertension; Z79.899 Other long term (current) drug therapy; Z88.5 Allergy status to narcotic agent | CPT/HCPCS: 99282 ==